=== PATIENT | male | born 1995 | race American Indian/Alaskan Native ===

== ENCOUNTER 2019-02-18 15:25 | Emergency (ER) | payer MEDICAID ==
[2019-02-18 15:56] VITALS: BP 122/65
--- NOTE | 2019-02-18 15:56 | Event Note ---
ED Screening Note Date of service: 02/18/19 Time: 15:55 ED Screening Note: 23 y/o male comes to er concern for something in his right ear. Discofort woke patient up during the night. This initial assessment/diagnostic orders/clinical plan/treatment(s) is/are subject to change based on patients health status, clinical progression and re- assessment by fellow clinical providers in the ED. Further treatment and workup at subsequent clinical providers discretion. Patient/guardian urged not to elope from the ED as their condition may be serious if not clinically assessed and managed. Initial orders include:
--- NOTE | 2019-02-18 16:09 | Emergency Department Report ---
ED ENT HPI - General Chief complaint: Earache Stated complaint: EAR CLOGGED Time Seen by Provider: 02/18/19 15:53 Source: patient Mode of arrival: Ambulatory Limitations: No Limitations - History of Present Illness Initial comments: Viktor is a 23 yo male who has foreign object in his right ear. He felt something crawl into his ear. He has irritation. He has been scratching his ear. He also used an object to dig in the ear. MD complaint: ear pain, foreign body -: Last night Location: R ear Severity: mild Consistency: constant Improves with: none Worsens with: none Context- Ear: other (foreign body) - Related Data Allergies Allergy/AdvReac Type Severity Reaction Status Date / Time No Known Allergies Allergy Unverified 02/18/19 15:40 ED Dental HPI - General Chief complaint: Earache Stated complaint: EAR CLOGGED Time Seen by Provider: 02/18/19 15:53 Source: patient Mode of arrival: Ambulatory Limitations: No Limitations - Related Data Allergies Allergy/AdvReac Type Severity Reaction Status Date / Time No Known Allergies Allergy Unverified 02/18/19 15:40 ED Review of Systems ROS: Stated complaint: EAR CLOGGED Other details as noted in HPI Constitutional: denies: fever, malaise ENT: other. denies: ear pain, throat pain, dental pain, hearing loss, epistaxis, congestion Respiratory: denies: cough ED Past Medical Hx - Past Medical History Previous Medical History?: No - Surgical History Past Surgical History?: No - Social History Smoking Status: Current Every Day Smoker Substance Use Type: None ED Physical Exam - General Limitations: No Limitations General appearance: alert, in no apparent distress - Head Head exam: Present: atraumatic, normocephalic - ENT ENT exam: Present: other (right ear: insect in the auditory canal) - Neurological Exam Neurological exam: Present: alert, oriented X3 - Psychiatric Psychiatric exam: Present: normal affect, normal mood - Skin Skin exam: Present: warm, dry, intact, normal color ED Course Vital Signs 02/18/19 15:53 Temperature 97.7 F Pulse Rate 69 Respiratory 16 Rate Blood Pressure 122/65 O2 Sat by Pulse 99 Oximetry - Foreign Body Removal Ear Location: ear canal (R) Foreign Body Suspected: insect If Insect Suspected: ear canal inspected-intac Foreign Body Removed: partial removal Foreign Body Removal Technique: other (irrigation) Tympanic Membrane Intact: Yes Patient Tolerated Procedure: well Complications: unable to tolerate Additional Comments: I was able to remove a portion of the insect with alligator forceps. Mrs. Jamison was unable to tolerate the remainder of the procedure. Consequently a portion of the insect was left in the auditory canal. I asked the nurse to irrigate the ear thereafter. ED Medical Decision Making - Medical Decision Making Right ear foreign body: Portion was removed with alligator forceps. Mr. Jerez was unable to tolerate further intervention. I recommended [id number] ear irrigation solution. Also recommended warm water irrigation. Referred to ENT specialist. Critical care attestation.: If time is entered above; I have spent that time in minutes in the direct care of this critically ill patient, excluding procedure time. ED Disposition Clinical Impression: Foreign body in right ear Disposition: [id number] TO HOME OR SELFCARE Is pt being admited?: No Does the pt Need Aspirin: No Condition: Stable Instructions: Ear Foreign Body (ED) Additional Instructions: Please continue to irrigate the ear at home 3 times a day to remove the remainder portions of the insect. Referrals: KIN DAY MD [Staff Physician] - as needed
== END 2019-02-18 17:17 | disposition home or self-care (01) ==
LOC: ED 15:25
DX: T16.1XXA Foreign body in right ear, initial encounter (principal); X58.XXXA Exposure to other specified factors, initial encounter; Y93.89 Activity, other specified; Y92.89 Other specified places as the place of occurrence of the external cause; Y99.8 Other external cause status

== ENCOUNTER 2021-07-09 03:23 | Emergency (ER) | payer SELFPAY ==
[2021-07-09] MEDS ORDERED: oxyCODONE /ACETAMINOPHEN 5-325MG TAB PO ONE (03:37)
[2021-07-09] MEDS ORDERED: IBUPROFEN 600 MG TAB PO ONE (03:37)
[2021-07-09] MEDS ORDERED: ONDANSETRON 4 MG ODT TAB PO ONE (03:37)
[2021-07-09] MEDS ORDERED: AMOXICILLIN/K CLAV 875/125MG TAB PO ONE (03:38)
[2021-07-09 03:42] VITALS: BP 170/109
--- NOTE | 2021-07-09 03:42 | Emergency Department Report ---
ED General Adult HPI - General Stated complaint: BAD TOOTH PAIN - History of Present Illness Initial comments: Patient is a 26-year-old -[place] male with no past medical history presents to the ED with complaint of acute onset persistent painful swollen right mandibular gingiva and premolar molar toothache for the last 2 days, worse in the last 8 hours. Patient states that he is unable to sleep because of worsening pain. Patient denies dizziness, syncope, fever, chills, cough, sore throat, neck pain, change in vision, nausea and vomiting, chest pain or shortness of breath and headache. MD Complaint: DENTAL PAIN; SWOLLEN GUMS -: Sudden, days(s) (2) Location: mouth (Right mandibular premolar and molar toothache with swollen and painful gums) Radiation: non-radiation Severity scale (0 -10): 7 Quality: aching, sharp Consistency: constant Improves with: none Worsens with: none Associated Symptoms: denies other symptoms. denies: confusion, chest pain, cough, diaphoresis, fever/chills, malaise, nausea/vomiting, rash, shortness of breath, syncope, weakness Treatments Prior to Arrival: none - Related Data Previous Rx's Medication Instructions Recorded Last Taken Type Clindamycin [Clindamycin CAP] 450 mg PO TID 7 Days #63 capsule 10/30/19 Unknown Rx Ibuprofen [Motrin] 600 mg PO Q8H PRN #14 tablet 10/30/19 Unknown Rx Clindamycin [Clindamycin CAP] 300 mg PO Q8H #30 cap 07/09/21 Unknown Rx Ketorolac [Toradol] 10 mg PO Q8H PRN #20 tab 07/09/21 Unknown Rx traMADoL [Ultram] 50 mg PO Q6HR PRN #12 tablet 07/09/21 Unknown Rx Allergies Allergy/AdvReac Type Severity Reaction Status Date / Time No Known Allergies Allergy Unverified 02/18/19 15:40 ED Review of Systems ROS: Stated complaint: BAD TOOTH PAIN Other details as noted in HPI Constitutional: denies: chills, fever Eyes: denies: eye pain, eye discharge, vision change ENT: dental pain (Swollen, painful right mandibular gingiva; right mandibular premolar and molar toothache). denies: ear pain, throat pain, congestion Respiratory: denies: cough, shortness of breath, wheezing Cardiovascular: denies: chest pain, palpitations Endocrine: no symptoms reported Gastrointestinal: denies: abdominal pain, nausea, vomiting, diarrhea Genitourinary: denies: urgency, dysuria Musculoskeletal: denies: back pain, joint swelling, arthralgia Skin: denies: rash, lesions Neurological: denies: headache, weakness, paresthesias Psychiatric: denies: anxiety, depression Hematological/Lymphatic: denies: easy bleeding, easy bruising ED Past Medical Hx - Social History Smoking Status: Current Every Day Smoker Substance Use Type: None - Medications Home Medications: Home Medications Medication Instructions Recorded Confirmed Last Taken Type Clindamycin [Clindamycin CAP] 450 mg PO TID 7 Days #63 capsule 10/30/19 Unknown Rx Ibuprofen [Motrin] 600 mg PO Q8H PRN #14 tablet 10/30/19 Unknown Rx Clindamycin [Clindamycin CAP] 300 mg PO Q8H #30 cap 07/09/21 Unknown Rx Ketorolac [Toradol] 10 mg PO Q8H PRN #20 tab 07/09/21 Unknown Rx traMADoL [Ultram] 50 mg PO Q6HR PRN #12 tablet 07/09/21 Unknown Rx ED Physical Exam - General Limitations: No Limitations General appearance: alert, in no apparent distress - Head Head exam: Present: atraumatic, normocephalic, normal inspection - Eye Eye exam: Present: normal appearance, PERRL, EOMI Pupils: Present: normal accommodation - ENT ENT exam: Present: mucous membranes moist, TM's normal bilaterally, normal external ear exam, other (Swollen, tender right mandibular gingiva; severely tender right mandibular premolar and molar teeth) - Neck Neck exam: Present: normal inspection, full ROM. Absent: tenderness - Respiratory Respiratory exam: Present: normal lung sounds bilaterally. Absent: respiratory distress, wheezes, rales, stridor, chest wall tenderness, accessory muscle use, prolonged expiratory - Cardiovascular Cardiovascular Exam: Present: regular rate, normal rhythm, normal heart sounds. Absent: systolic murmur, diastolic murmur, rubs, gallop - GI/Abdominal GI/Abdominal exam: Present: soft, normal bowel sounds. Absent: tenderness, guarding, rebound, hyperactive bowel sounds, hypoactive bowel sounds, organomegaly - Rectal Rectal exam: Present: deferred - Extremities Exam Extremities exam: Present: normal inspection, full ROM, normal capillary refill - Back Exam Back exam: Present: normal inspection, full ROM. Absent: tenderness, CVA tenderness (R), CVA tenderness (L), muscle spasm, paraspinal tenderness, vertebral tenderness - Neurological Exam Neurological exam: Present: alert, oriented X3, CN II-XII intact, normal gait, reflexes normal - Psychiatric Psychiatric exam: Present: normal affect, normal mood - Skin Skin exam: Present: warm, dry, intact, normal color. Absent: rash ED Medical Decision Making - Medical Decision Making This is a 26-year-old -[place] male with no past medical history presents to the ED with complaint of acute onset persistent painful swollen right mandibular gingiva and premolar molar toothache for the last 2 days, worse in the last 8 hours. Patient states that he is unable to sleep because of worsening pain. In the ED, patient is alert and oriented x3 and is not in any distress. Patient was treated in the ED for pain and also given initial oral antibiotics. Patient was discharged home on pain medications and antibiotics and advised follow-up with his dentist in 7 to 10 days for reevaluation. Patient is advised return to the ED immediately if symptoms get worse. - Differential Diagnosis dental abscess; gingivitis; dental caries Critical care attestation.: If time is entered above; I have spent that time in minutes in the direct care of this critically ill patient, excluding procedure time. ED Disposition Clinical Impression: Dental abscess, Acute gingivitis Disposition: 01 HOME / SELF CARE / HOMELESS Is pt being admited?: No Does the pt Need Aspirin: No Condition: Stable Instructions: Dental Abscess, [id number], Trench Mouth Additional Instructions: Take medication with food, drink plenty of fluids and follow-up with your dentist in 7 to 10 days for reevaluation. Return to the ED immediately if symptoms get worse. Prescriptions: Clindamycin [Clindamycin CAP] 300 mg PO Q8H #30 cap Ketorolac [Toradol] 10 mg PO Q8H PRN #20 tab PRN Reason: Pain traMADoL [Ultram] 50 mg PO Q6HR PRN #12 tablet PRN Reason: Pain Referrals: [facility] [Outside] - 7-10 days Forms: Work/School Release Form(ED) Time of Disposition: 03:39 Print Language: GEORGI[place]
== END 2021-07-09 03:40 | disposition home or self-care (01) ==
LOC: ED 03:23
DX: K04.7 Periapical abscess without sinus (principal); K05.00 Acute gingivitis, plaque induced; F17.200 Nicotine dependence, unspecified, uncomplicated
CPT/HCPCS: 99282; J3490; Q0162